=== PATIENT | male | born 1990 | race Two or more races ===

== ENCOUNTER 2024-11-20 08:17 | Emergency (ER) | payer OTHER ==
[~2024-11-20 08:17] MED LIST: OMEP20TA44 OR
== END 2024-11-20 08:29 | disposition left against medical advice (07) ==
LOC: ER 08:17
DX: Z48.00 Encounter for change or removal of nonsurgical wound dressing (principal); Z53.21 Procedure and treatment not carried out due to patient leaving prior to being seen by health care provider